=== PATIENT | female | born 1950 | race Caucasian/White ===

== ENCOUNTER 2025-10-04 15:43 | Emergency (ER) | payer OTHER, SELFPAY ==
[2025-10-04 15:44] VITALS: BP 135/91
[2025-10-04 16:08] VITALS: BMI 37.1
--- NOTE | 2025-10-04 16:26 | ED.CVA ---
History of Present Illness
General
Chief Complaint: CVA/TIA Symptoms
Source: patient and family
Time Seen by Provider: 10/04/25 15:49
Onset of Stroke Symptoms
Onset of symptoms known: No
Time pt last seen normal is known: No
History of Present Illness
History of Present Illness:
75-year-old female presents to the emergency room with her family for evaluation of increased slurred speech. Patient drove from her home tp son's house today for Thanksgiving dinner. They noted that her speech seemed more slurred than normal.
Patient does have a history of a CVA and does have some slurring of her speech at baseline but seems increased today. They also noticed she seemed a little more unsteady when walking in the kitchen. She has a history of neuropathy and does require
a cane. Patient took a dose of Journavx today. She takes this occasionally when she is going to have more activity than normal. She did this because of her neuropathy. Patient admits to not eating or drinking much today for no particular reason
other than she just did not do it. She denies any nausea, vomiting, diarrhea, urinary symptoms.
Past History
Past History
ED Past Medical History: HTN and Hypothyroidism
ED Past Surgical History: Gynecological (hysterectomy 11/09/18)
Patient has exhibited threatening behavior?: No
Phy Exam
Physical Exam
Physical Exam:
General: Awake, Alert, Oriented X3. No acute distress.
Vitals: unremarkable
Head: Atraumatic
Eyes: Pupils equal, EOMI
Throat: Airway intact, no exudates, significantly dry mucosa
Neck: Trachea midline
Lungs: Clear and equal b/l
Heart: Regular rate, no murmurs
Abd: Soft, Nontender, No pulsatile mass
Neuro: No facial droop, tongue midline, speech is somewhat slurred but understandable, no aphasia, muscle strength equal bilaterally, cerebellar exam normal
Skin: Warm, dry, no rash
Extremities: pulses equal b/l, no edema
Course
Orders/Labs/Results
Orders:
Orders
10/04/25 16:24
CT Head W/o Iv Contrast Urgent
Comment:
Reason For Exam: increased slurring of speech
Bedside Glucose- Treatment ONCE
Cardiac Monitoring- Treatment ONCE
10/04/25 16:29
Bedside Glucose- Treatment ONCE
Cardiac Monitoring- Treatment ONCE
10/04/25 16:30
Electrocardiogram (*1) Urgent
Reason for Study: Fatigue / Weakness
EKG- Treatment ONCE
10/04/25 16:33
Alcohol Urgent
Basic Metabolic Panel Urgent
Complete Blood Count/With Diff Urgent
10/04/25 19:40
Urinalysis Reflex To Culture Urgent
Abnormal Lab Results
10/04/25 10/04/25
16:30 16:33
RBC 3.53 L 10^6/uL
(4.20-5.40)
Hct 35.4 L %
(37.0-47.0)
MCV 100.3 H fL
(81.0-99.0)
MCH 34.3 H pg
(27.0-31.0)
Abs Immat Gran (auto) 0.1 H 10^3/uL
(0-0.05)
Absolute Lymphs (auto) 1.0 L 10^3/uL
(1.2-3.4)
Immature Gran % 0.8 H %
(0-0.5)
Lymphocytes % 13.3 L %
(20.5-51.1)
Sodium 131 L mmol/L
(135-145)
BUN 22 H mg/dl
(7-17)
Glucose 108 H mg/dl
(70-99)
POC Glucose 111 H mg/dl
(70-99)
10/04/25 16:33
10/04/25 16:33
Vital Signs
Initial and Last Documented VS:
Initial Vital Signs
Temp Pulse Resp BP Pulse Ox
97.3 F 76 18 135/91 95
10/04/25 15:44 10/04/25 15:44 10/04/25 15:44 10/04/25 15:44 10/04/25 15:44
Last Documented Vital Signs
Temp Pulse Resp BP Pulse Ox
97.3 F 62 10 135/91 96
10/04/25 15:44 10/04/25 17:45 10/04/25 17:45 10/04/25 15:44 10/04/25 17:45
MDM/Problems Addressed
Differential Diagnosis Includes:
CVA, electrolyte abnormality, dehydration, UTI
MDM/Problems Addressed:
Patient presents somewhat increase slurred speech per family. No other focal neurologic deficits. Patient is awake and alert and able to communicate but her speech is somewhat slurred. CT shows no acute abnormality. Labs are all unremarkable.
No evidence of urinary tract infection. Clinically the patient appears quite dry. After oral hydration she does seem improved. I think it is very unlikely the patient has a ischemic event given the only symptoms worsening of already existing
slurred speech. The patient stable for discharge home and follow-up as an outpatient but we did discuss returning should there be any worsening of her symptoms or any other concerns.
*Radiology
Radiology exam reviewed: radiology read reviewed
*Pulse Oximetry
SaO2: 95
Oxygen Mode of Delivery: Room air
Patient hypoxic: no
*EKG
Interpreted by ED Provider?: Yes
Heart Rate: 64
Rate: normal
Rhythm: sinus
Interval: first degree heart block
QRS Pattern: left vent hypertrophy
Ischemia: non-specific ST changes
*Critical Care Note
Total Time (30-74mins, 75-104mins- exclusive of procedures): Not Applicable
Data Reviewed
Review of Other/Old Records Reveals: Discharge Summary (From hospitalization in 2019 when she had her CVA)
Patient Management
Social determinants of health affecting care: Strong social support
ED Attending Note
-
Portions of this chart may have been created with voice recognition software.� Occasional wrong word or��sound alike� substitutions may have occurred due to the inherent limitations of voice recognition software.
Discharge Plan
Departure
Patient Disposition: Home (Routine Discharge)
Date of Disposition: 10/04/25
Time of Disposition: 20:50
Patient with high blood pressure during this ER visit?: Yes
Condition: Good
Discharge Problem:
Slurred speech
Instructions: Dysarthria, BLOOD PRESSURE
Prescriptions:
No Action
levothyroxine 175 MCG tablet
175 mcg PO DAILY
tramadol 50 MG tablet
50 mg PO Q6HPRN PRN (Reason: post op pain)
enoxaparin 40 MG/0.4 ML syringe
40 mg SC .DAILY AT 11:00
valsartan-hydrochlorothiazide 1 EACH tablet
1 ea PO QPM
awyhuoetnunc-cakh-tveoy acid [Centrum] 1 EACH tablet
1 ea PO DAILY
L.acidoph,paracasei,B.animalis 1 EACH capsule
1 ea PO DAILY
Cercumin
1 tab PO DAILY
Patient Comments:
held for surgery
Vitamin C:
1 tab PO DAILY
Patient Comments:
held for surgery
Vitamin D3 (cholecalciferol):
1 tab PO DAILY
Patient Comments:
held for surgery
atorvastatin 80 MG tablet
80 mg PO QPM Qty: 30 0RF
aspirin 81 MG tablet,delayed release (DR/EC)
81 mg PO DAILY 0RF
Referrals:
Alan Betancur DO [Family Provider, Family Practice]
Activity Restrictions/Additional Instructions:
All testing here is within acceptable range. No evidence of urinary tract infection. CT shows no acute abnormalities. Given there is no other focal neurologic deficits I think this is unlikely to have been a stroke. Follow-up with your primary
care provider. Return for any concerns or change in your symptoms.
Interventions
Interventions:
*Risk Screen - Suicide Last Done: 10/04/25 16:11
*General Assessment Last Done: 10/04/25 16:11
*Neglect/Abuse Screening Last Done: 10/04/25 16:11
*ED- Fall Risk Assessment Last Done: 10/04/25 16:11
*Nursing Disposition Last Done: 10/04/25 21:14
ED- Pulmonary Assessment Last Done: 10/04/25 16:09
ED- Neurological Assessment Last Done: 10/04/25 16:09
ED- Cardiac Assessment Last Done: 10/04/25 16:09
ED Swallowing Screen Last Done: 10/04/25 16:09
Discharge Date and Time
Discharge Date/Time: 10/04/25 21:15
Print Language: ARGENTINE
[2025-10-04 16:41] LABS: Hematocrit 35.4 % (37.0-47.0); Hemoglobin 12.1 g/dL (12.0-16.0); Mean Corp Hgb Conc. 34.2 g/dL (33.0-37.0); Mean Corpuscular Volume 100.3 fL (81.0-99.0); Nucleated Red Blood Cells % 0 %; Platelet Count 308 10^3/uL (130-400); Red Cell Dist. Width 12.4 % (11.5-14.5)
[2025-10-04 16:42] LABS: Glucose - Point of Care 111 mg/dl (70-99)
[2025-10-04 17:03] LABS: Blood Urea Nitrogen 22 mg/dl (7-17); Calcium 9.7 mg/dl (8.4-10.2); Carbon Dioxide 26 mmol/L (22-30); Chloride 99 mmol/L (98-107); Estimated Creatinine Clearance 59 ml/min; Glucose 108 mg/dl (70-99); Potassium 4.7 mmol/L (3.5-5.1); Sodium 131 mmol/L (135-145); eGFR > 60.00
[2025-10-04 19:46] LABS: Urine Character Clear (Clear)
== END 2025-10-04 21:15 | disposition home or self-care (01) ==
LOC: EMR 15:43
PROVIDERS: EMERGENCY PHYSICIAN Emergency Medicine; FAMILY PHYSICIAN Family Medicine Sports Medicine
DX: R47.81 Slurred speech (principal); I44.0 Atrioventricular block, first degree; I10 Essential (primary) hypertension; E03.9 Hypothyroidism, unspecified; G62.9 Polyneuropathy, unspecified; Z79.82 Long term (current) use of aspirin; Z86.73 Personal history of transient ischemic attack (TIA), and cerebral infarction without residual deficits
CPT/HCPCS: 99284; 70450; 80048; 81003; 82077; 82962; 85025; 93005